=== PATIENT | female | born 1985 | race Caucasian/White ===

== ENCOUNTER 2017-11-07 08:20 | Inpatient (IN) | payer OTHER ==
[2017-11-08] MEDS ORDERED: OXYTOCIN 20 UNITS/1000 ML NS 1,000 ML IV SCH (06:00)
[2017-11-08] MEDS ORDERED: METHYLERGONOVINE 0.2 MG/ML 1 ML AMP IM PRN (06:00)
[2017-11-08] MEDS ORDERED: TERBUTALINE 1 MG/ML VIAL SQ PRN (06:00)
[2017-11-08] MEDS ORDERED: CARBOPROST TROMETHAMINE 250 MCG/ML 1 ML AMP IM PRN (06:00)
[2017-11-08] MEDS ORDERED: OXYTOCIN 10 UNIT/ML 1 ML VIAL IM PRN (06:00)
[2017-11-08] MEDS ORDERED: LIDOCAINE 1% (PF) 10 MG/ML (30 ML SDV) SQ PRN (06:00)
[2017-11-08 06:17] VITALS: BMI 47.7
[2017-11-08] MEDS: LACTATED RINGERS 1,000 ML IV SCH ×2 (06:26→10:20)
[2017-11-08 06:35] LABS: Basophils % (A) 0 %; Eosinophils # (A) 0.1 k/uL (0-0.7); Eosinophils % (A) 1 %; HCT 34.5 % (34.0-46.0); HGB 11.2 gm/dL (11.4-16.0); Lymphocytes # (A) 1.8 k/uL (1.0-4.8); Lymphocytes % (A) 19 %; MCH 27.3 pg (25.0-35.0); MCHC 32.3 g/dL (31.0-37.0); MCV 84.6 fL (80.0-100.0); Mean Platelet Volume 9.3; Monocytes # (A) 0.5 k/uL (0-1.0); Monocytes % (A) 5 %; Neutrophils # (A) 7.2 k/uL (1.3-7.7); Neutrophils % (A) 74 %; Platelet Count 221 k/uL (150-450); RBC 4.08 m/uL (3.80-5.40); RDW 14.3 % (11.5-15.5); WBC 9.8 k/uL (3.8-10.6)
--- NOTE | 2017-11-08 09:00 | P.HPOB ---
History of Present Illness H&P Date: 11/08/17 This is a 32-year-old white female 3 para 2002 EDC 11/07/2017 at 40 and one sevenths weeks' gestation. Patient presents this morning for induction with favorable multiparous cervix, slightly postdates . She is having mild irregular contractions spontaneously. She denies fluid leakage or vaginal bleeding. Fetus is been active throughout the . Obstetric history is significant for blood type A+, rubella status immune. VDRL testing, urine culture, hepatitis B surface antigen, HIV testing, group B strep cultures all negative. One-hour Glucola 130. Past medical history is significant for obesity. Past surgical history is negative. Current medications vitamins. ALLERGIES none known. Social history patient is a nonsmoker, she is , she denies alcohol or drug use. Family history is noncontributory. On exam this is a pleasant white female, 5 foot 8 inches, 314 pounds, blood pressure 133/82, pulse 84, patient is afebrile. The general physical exam is within normal limits. Patient has poor dentition noted. Chest is clear in all clement. Extremities reveal no edema. Cervix is 4 cm dilated, 70-80% effaced, - 2 station, vertex presentation. Artificial amniorrhexis reveals clear fluid. heart tones are in the 140s with frequent accelerations consistent with reactive NST. Impression: 40 and one sevenths weeks intrauterine , favorable multiparous cervix, early labor. Plan: Continue oxytocin augmentation per hospital protocol. Continue close maternal and surveillance. Epidural may be placed at patient's request. Anticipate normal spontaneous vaginal delivery. Review of Systems Constitutional: Reports as per HPI Past Medical History Past Medical History: No Reported History Additional Past Medical History / Comment(s): Obesity History of Any Multi-Drug Resistant Organisms: None Reported Past Surgical History: No Surgical Hx Reported Past Anesthesia/Blood Transfusion Reactions: No Reported Reaction Past Psychological History: No Psychological Hx Reported Smoking Status: Never smoker Past Drug Use History: None Reported - Past Family History Mother Family Medical History: Diabetes Mellitus Medications and Allergies Home Medications Medication Instructions Recorded Confirmed Type Fluticasone Nasal [place] [Flonase 2 spr EA NOSTRIL DAILY #1 bottle 05/11/1511/08 Rx Nasal [place]] Pnv No.95/Ferrous Fum/Folic AC 1 each PO ONCE 11/08/17 11/08/17 History [ Multivitamin Tablet] Allergies Allergy/AdvReac Type Severity Reaction Status Date / Time No Known Allergies Allergy Verified 11/08/17 05:59 Exam Vital Signs Temp Pulse Resp BP Pulse Ox 11/08/17 05:57 97.2 F L 84 16 133/82 98 Intake and Output 11/07/17 11/08/17 11/08/17 22:59 06:59 14:59 Other: # Voids 1 Weight 142.428 kg See dictation under HPI please Results Result Diagrams: 11/08/17 06:15 Abnormal Lab Results - Last 24 Hours (Table) 11/08/17 Range/Units 06:15 Hgb 11.2 L (11.4-16.0) gm/dL Assessment and Plan Assessment: 40 and one sevenths weeks intrauterine , early labor. Favorable multiparous cervix. Plan: Oxytocin augmentation per hospital protocol. Epidural may be a stat patient's request. Close maternal and surveillance. Anticipate normal spontaneous vaginal delivery. Time with Patient: Less than 30
[2017-11-08] MEDS ORDERED: ACETAMINOPHEN TAB 325 MG TAB PO PRN (12:19)
[2017-11-08] MEDS ORDERED: diphenhydrAMINE 25 MG CAP PO PRN (12:19)
[2017-11-08] MEDS ORDERED: IBUPROFEN 600 MG TAB PO PRN (12:19)
[2017-11-08] MEDS ORDERED: ZOLPIDEM 5 MG TAB PO PRN (12:19)
[2017-11-08] MEDS ORDERED: diphenhydrAMINE 50 MG CAP PO PRN (12:19)
[2017-11-08] MEDS ORDERED: SIMETHICONE 80 MG CHEWABLE PO PRN (12:19)
[2017-11-08] MEDS ORDERED: diphenhydrAMINE 50 MG/ML 1 ML VIAL IVP PRN ×2 (12:19)
[2017-11-08] MEDS ORDERED: LANOLIN CREAM 5 GM TUBE TOPICAL PRN (12:19)
[2017-11-08] MEDS ORDERED: BENZOCAINE/MENTHOL SPRAY 1 GM/SPRAY AEROSOL TOPICAL PRN (12:19)
[2017-11-08] MEDS ORDERED: WITCH HAZEL 1 EACH MED..PAD TOPICAL PRN (12:19)
[2017-11-08] MEDS ORDERED: HYDROcodone/APAP 5-325MG 1 EACH TAB PO PRN (12:19)
[2017-11-08] MEDS ORDERED: HYDROCORTISONE 2.5% RECTAL CREAM 30 GM TUBE RECTAL PRN (12:19)
--- NOTE | 2017-11-08 12:19 | P.PROBDLV ---
Vaginal Delivery Note - . Vaginal Delivery Note: This is a 32-year-old white female 3 para 2002 EDC 11/07/2017 at 40 and one sevenths weeks' gestation. Patient presented for induction with favorable multiparous cervix and history of macrosomia. Fetus is been active throughout the . On admission she was noted to be having mild irregular contractions. Strep cultures negative, rubella status immune, blood type A positive. Please see dictated history and physical for details. Artificial amniorrhexis revealed clear fluid. Oxytocin was started and titrated per hospital protocol. Patient progressed well through the first stage of labor was judged to be completely dilated at 12:00 noon. The perineal body was prepped and draped in usual sterile fashion. Infant's head delivered occiput anterior and he restituted accordingly. There was a nuchal cord 1 that was reduced on the perineal body. The left or anterior shoulder was gently delivered from underneath the pubic symphysis at which time the oropharynx, nasopharynx, and external nares were all bulb suctioned on the perineal body. Patient was officially delivered of a liveborn male at 1203 hrs. Umbilical cord was doubly clamped and ligated, he was handed to waiting nurses for evaluation where scores of 9 and 9 at one and 5 minutes respectively were given. weighed 9 lbs. 7 oz. or 4280 g. The placenta delivered spontaneously, it was inspected and noted to be intact with trivascular cord at 1206 hrs. At this time the perineal body was redraped. Inspection of the cervix, vagina, perineum, and periurethral areas revealed a small first-degree midline perineal laceration. This was repaired in the usual fashion with a single figure-of- eight suture of 3-0 Vicryl for excellent reapproximation. All sponge needle and enhancement counts are correct at the end of our procedure. Estimated blood loss 300 mL's. Patient is requesting circumcision for her son. Patient and her are allowed to begin the bonding experience in the LDR.
[2017-11-08 12:31] VITALS: RESP 16
[2017-11-08] MEDS ORDERED: ROPIVACAINE 100 MG, fentaNYL (PF) 200 MCG in SODIUM CHLORIDE 0.9% 76 ML EPIDURAL ONE (13:04)
[2017-11-08] MEDS: SENNOSIDES-DOCUSATE SODIUM 1 EACH TAB PO SCH (20:39)
--- NOTE | 2017-11-09 08:27 | P.DS ---
Providers Date of admission: 11/08/17 05:48 Expected date of discharge: 11/09/17 Attending physician: Rosette Travis Primary care physician: Stated None Hospital Course: This is a 32-year-old white female 3 para 2002 EDC 11/07/2017 at 40 and one sevenths weeks' gestation. Patient presented for induction for suspected macrosomia, favorable multiparous cervix at term. is essentially unremarkable, group B strep cultures negative, rubella status immune. Please see my dictated history and physical for details. Artificial amniorrhexis revealed clear fluid. Oxytocin was started and titrated per hospital protocol. Patient progressed well through the first stage of labor. She went on to deliver a liveborn male with scores of 9 and 9 at one and 5 minutes respectively. Infant weighed 4280 g 8 ounces. A small first-degree perineal laceration was encountered and repaired without issue. Estimate a blood loss 300 mL's. Please see my dictated delivery note for details. This morning the patient is doing well. She is voiding, and bleeding and passing flatus without difficulty. Vital signs are stable and she is afebrile. Fundus is firm and in the midline, symmetric and 18 week size. Extremities are negative for edema. Chest is clear in all clement. Ounces firm and in the midline, symmetric and 18 week size. Breasts are not engorged. infant has been circumcised and is doing well. Patient is being discharged home today in very good condition. She will follow- up with me in the office in 6 weeks. I have reminded her no intercourse, tampons or douching. She will use [id number] ibuprofen products as needed for pain, 200 mg pills, for every 8 hours as needed. I've asked her to call me with any fevers shakes or chills, foul smelling or copious lochia, with the passage of large blood clots, with any pain not alleviated by over-the- counter meds, or indeed with any concerns. Patient Condition at Discharge: Good Plan - Discharge Summary New Discharge Prescriptions: No Action Fluticasone Nasal [place] [Flonase Nasal [place]] 2 spr EA NOSTRIL DAILY #1 bottle Pnv No.95/Ferrous Fum/Folic AC [ Multivitamin Tablet] 1 each PO ONCE Discharge Medication List Fluticasone Nasal [place] [Flonase Nasal [place]] 2 spr EA NOSTRIL DAILY #1 bottle 05/11/15 [Rx] Pnv No.95/Ferrous Fum/Folic AC [ Multivitamin Tablet] 1 each PO ONCE [History] Follow up Appointment(s)/Referral(s): Rosette Travis MD [STAFF PHYSICIAN] - 6 Weeks Discharge Disposition: HOME SELF-CARE
[2017-11-09 10:53] VITALS: BP 125/65; PULSE 81; TEMP 98.4
[2017-11-09] MEDS: SENNOSIDES-DOCUSATE SODIUM 1 EACH TAB PO SCH (10:54)
== END 2017-11-09 14:40 | disposition home or self-care (01) | DRG 775 ==
LOC: 4FBP 11-08 05:48
PROVIDERS: ADMIT Obstetrics & Gynecology; ATTEND Obstetrics & Gynecology
PROC: 10E0XZZ Delivery of Products of Conception, External Approach (ICD-10-PCS; principal; 2017-11-08)
PROC: 0HQ9XZZ Repair Perineum Skin, External Approach (ICD-10-PCS; 2017-11-08)
PROC: 10907ZC Drainage of Amniotic Fluid, Therapeutic from Products of Conception, Via Natural or Artificial Opening (ICD-10-PCS; 2017-11-08)
PROC: 3E033VJ Introduction of Other Hormone into Peripheral Vein, Percutaneous Approach (ICD-10-PCS; 2017-11-08)
PROC: 00HU33Z Insertion of Infusion Device into Spinal Canal, Percutaneous Approach (ICD-10-PCS; 2017-11-08)
PROC: 3E0R3BZ Introduction of Anesthetic Agent into Spinal Canal, Percutaneous Approach (ICD-10-PCS; 2017-11-08)
DX: O48.0 Post-term pregnancy (principal); Z68.42 Body mass index [BMI] 45.0-49.9, adult; Z37.0 Single live birth; O99.214 Obesity complicating childbirth; O69.81X0 Labor and delivery complicated by cord around neck, without compression, not applicable or unspecified; O70.0 First degree perineal laceration during delivery; Z3A.40 40 weeks gestation of pregnancy; Z79.899 Other long term (current) drug therapy; Z83.3 Family history of diabetes mellitus
CPT/HCPCS: 85025

== ENCOUNTER 2020-01-15 06:07 | Inpatient (IN) | payer OTHER ==
[2020-01-15] MEDS ORDERED: CARBOPROST TROMETHAMINE 250 MCG/ML 1 ML AMP IM PRN (06:16)
[2020-01-15] MEDS ORDERED: METHYLERGONOVINE 0.2 MG/ML 1 ML AMP IM PRN (06:16)
[2020-01-15] MEDS ORDERED: OXYTOCIN 10 UNIT/ML 1 ML VIAL IM PRN (06:16)
[2020-01-15] MEDS ORDERED: TERBUTALINE 1 MG/ML VIAL SQ PRN (06:16)
[2020-01-15] MEDS ORDERED: LIDOCAINE 0.5% (PF) 5 MG/ML (50 ML SDV) SQ PRN (06:16)
[2020-01-15 06:27] VITALS: RESP 16
[2020-01-15] MEDS ORDERED: OXYTOCIN 30 UNITS/500 ML NS 30 UNIT in SALINE 1 500ML.BAG IV SCH (06:30)
[2020-01-15] MEDS: LACTATED RINGERS 1,000 ML IV SCH ×2 (06:34→08:56)
[2020-01-15 06:45] LABS: Basophils # (A) 0.1 k/uL (0-0.2); Basophils % (A) 1 %; Eosinophils # (A) 0.1 k/uL (0-0.7); Eosinophils % (A) 1 %; HCT 36.2 % (34.0-46.0); HGB 11.7 gm/dL (11.4-16.0); Lymphocytes # (A) 1.9 k/uL (1.0-4.8); Lymphocytes % (A) 23 %; MCH 27.7 pg (25.0-35.0); MCHC 32.4 g/dL (31.0-37.0); MCV 85.3 fL (80.0-100.0); Monocytes # (A) 0.4 k/uL (0-1.0); Monocytes % (A) 4 %; Neutrophils # (A) 5.9 k/uL (1.3-7.7); Neutrophils % (A) 70 %; Platelet Count 196 k/uL (150-450); RBC 4.25 m/uL (3.80-5.40); RDW 14.5 % (11.5-15.5); WBC 8.5 k/uL (3.8-10.6)
--- NOTE | 2020-01-15 07:56 | P.HPOB ---
History of Present Illness H&P Date: 01/15/20 This is a 34-year-old female 4 para 3003 EDC 01/22/2020 at 39 weeks gestation. Patient presents today for induction with favorable multiparous cervix at term. Fetus is been active throughout the . She is having mild uterine contractions spontaneously every 5 minutes apart. She denies fluid leakage or vaginal bleeding. Past medical history is significant for morbid obesity. Past surgical history colposcopy of the cervix. Current medications vitamins daily. ALLERGIES none known. Family history significant for gout, hypertension, insulin-dependent diabetes. Reproductive history vaginal deliveries 3, 9010 pound fetuses. Social history patient is single, father of the baby is present and involved. She has never been a tobacco smoker. She denies alcohol or drug use. She is employed locally. history is significant for blood type A positive, rubella status nonimmune. VDRL testing, urine culture, hepatitis B surface antigen, HIV testing, gonorrhea and chlamydia cultures all negative. One-hour Glucola elevated, 3 hour GTT within normal limits. Group B strep cultures negative. On exam patient is 5 foot 8 inches, 325 pounds, blood pressure on admission 142/79, vital signs otherwise stable. The general physical exam is within normal limits. The uterus reveals a fundal height of approximately 43 cm. Extremities reveal no edema. Cervix is 4-5 cm dilated, 60-70% effaced, -2 station, vertex presentation. Artificial amniorrhexis reveals clear fluid. Internal scalp lead is applied per nursing request secondary to large abdominal pannus and inability to consistently monitor heart rate. heart rate is consistent with reactive NST with overall excellent variability. Impression: 39 week intrauterine , here for induction of labor, all signs reassuring. Morbid maternal obesity noted area sonographic evidence of macrosomia also considered. Plan: Continue close maternal and surveillance. Analgesic options have been reviewed with the patient. Anticipate normal spontaneous vaginal delivery. Review of Systems Constitutional: Reports as per HPI Past Medical History Past Medical History: No Reported History Additional Past Medical History / Comment(s): Obesity History of Any Multi-Drug Resistant Organisms: None Reported Past Surgical History: No Surgical Hx Reported Past Anesthesia/Blood Transfusion Reactions: No Reported Reaction Past Psychological History: No Psychological Hx Reported Smoking Status: Never smoker Past Alcohol Use History: None Reported Past Drug Use History: None Reported - Past Family History Mother Family Medical History: Diabetes Mellitus Medications and Allergies Home Medications Medication Instructions Recorded Confirmed Type Pnv No.95/Ferrous Fum/Folic AC 1 each PO ONCE 11/08/17 01/15/20 History [ Multivitamin Tablet] Allergies Allergy/AdvReac Type Severity Reaction Status Date / Time No Known Allergies Allergy Verified 01/15/20 06:16 Exam Vital Signs Temp Pulse Resp BP Pulse Ox 01/15/20 06:20 97.0 F L 98 16 142/79 97 Intake and Output 01/14/20 01/15/20 01/15/20 22:59 06:59 14:59 Other: Weight 147.418 kg See dictation under HPI please Results Result Diagrams: 01/15/20 06:35 Assessment and Plan Assessment: 39 week intrauterine , favorable multiparous cervix, macrosomia anticipated, maternal morbid obesity noted. Plan: Oxytocin per hospital protocol. Close maternal and surveillance. Anticipate normal spontaneous vaginal delivery.
[2020-01-15] MEDS ORDERED: diphenhydrAMINE ELIXIR 25 MG/10 ML CUP PO PRN (11:23)
[2020-01-15] MEDS ORDERED: HYDROCORTISONE 2.5% RECTAL CREAM 30 GM TUBE RECTAL PRN (11:23)
[2020-01-15] MEDS ORDERED: ACETAMINOPHEN TAB 325 MG TAB PO PRN (11:23)
[2020-01-15] MEDS ORDERED: SIMETHICONE 80 MG CHEWABLE PO PRN (11:23)
[2020-01-15] MEDS ORDERED: diphenhydrAMINE 50 MG/ML 1 ML VIAL IVP PRN ×2 (11:23)
[2020-01-15] MEDS ORDERED: ZOLPIDEM 5 MG TAB PO PRN (11:23)
[2020-01-15] MEDS ORDERED: diphenhydrAMINE 50 MG CAP PO PRN (11:23)
[2020-01-15] MEDS ORDERED: IBUPROFEN 600 MG TAB PO PRN (11:23)
[2020-01-15] MEDS ORDERED: LANOLIN CREAM 5 GM TUBE TOPICAL PRN (11:23)
[2020-01-15] MEDS ORDERED: diphenhydrAMINE 25 MG CAP PO PRN (11:23)
[2020-01-15] MEDS ORDERED: BENZOCAINE/MENTHOL SPRAY 1 GM/SPRAY AEROSOL TOPICAL PRN (11:23)
--- NOTE | 2020-01-15 11:23 | P.PROBDLV ---
Vaginal Delivery Note - . Vaginal Delivery Note: This is a 34-year-old 4 para 3003 EDC 01/22/2020 at 39 weeks gestation. Patient presented today for induction for suspected macrosomia, favorable multiparous cervix. Group B strep cultures negative. Blood type B positive. Rubella nonimmune. Please see admitting history and physical for details. Artificial amniorrhexis revealed light meconium-stained fluid. Internal scalp lead was applied. Epidural was placed per patient's request after active labor commenced. Oxytocin was started and titrated per hospital protocol. heart rate was reassuring throughout the first and second stages of labor. Patient became completely dilated, perineal body was prepped and draped in the usual sterile fashion. With excellent maternal expulsive efforts the head delivered occiput anterior and restituted accordingly. There was a nuchal cord 1 that was reduced. The right or anterior shoulder was gently delivered from underneath the pubic symphysis at which time the oropharynx, nasopharynx, and external nares were all bulb suctioned. Patient was officially delivered of a liveborn female at 03/21/2002 hours. Umbilical cord was doubly clamped and ligated, she was handed to waiting nurses for evaluation where scores of 8 and 9 at one and 5 minutes respectively were given. Placenta delivered spontaneously, it was inspected and noted to be intact with trivascular cord at 03/21/2007 hours. At this time the perineal body was redraped. Inspection of the cervix, vagina, perineum, periurethral, and perirectal areas revealed a small first-degree midline laceration, easily repaired with 3-0 repeat suture. Fundus is firm and in the midline, symmetric and 18 week size upon completion of delivery. Total estimated blood loss 250 mL's. weighed 4735 g or 10 lbs. 7 oz. Patient is allowed to begin the bonding experience in the LDR with her .
[2020-01-15] MEDS ORDERED: OXYTOCIN 20 UNITS/1000 ML NS 1,000 ML IV SCH (11:30)
[2020-01-15] MEDS ORDERED: ROPIVACAINE 100 MG, fentaNYL (PF) 200 MCG in SODIUM CHLORIDE 0.9% 76 ML EPIDURAL ONE (13:36)
[2020-01-15] MEDS ORDERED: SENNOSIDES-DOCUSATE SODIUM 1 EACH TAB PO SCH (20:00)
--- NOTE | 2020-01-16 07:31 | P.DS ---
Providers Date of admission: 01/15/20 06:07 Expected date of discharge: 01/16/20 Attending physician: Rosette Travis Primary care physician: Stated None Hospital Course: This is a 34-year-old white female 4 para 3003 EDC 01/22/2020 at 39 weeks gestation. Patient presented for induction for suspected macrosomia. otherwise unremarkable, group B strep cultures negative, [place] status nonimmune, blood type A+. Morbid maternal obesity is noted. Please see dictated history and physical for details. Patient was admitted, artificial amniorrhexis revealed thin meconium-stained fluid. Oxytocin was started and titrated. Epidural was placed per her request. She went on to deliver swiftly a liveborn female infant with scores of 8 and 9 at one and 5 minutes respectively. weighed 4735 g or 10 lbs. 7 oz. Estimated blood loss at delivery 250 mL's. There was a nuchal cord 1 that was reduced. Please see dictated delivery note for details. This morning the patient is doing well. She is voiding, ambulate in, passing flatus without difficulty. Vital signs are stable and she is afebrile. The general exam is within normal limits lochia rubra is scant. Patient is judged to be in very good condition for discharge home. Patient will follow-up with me in the office in 6 weeks. I have reminded her no intercourse, tampons or douching. She will use [id number] Advil or Aleve as needed for pain. I reminded her to call with any fevers shakes or chills, foul smelling or copious lochia, with the passage of large blood clots, with any pain not alleviated I [id number] products, or indeed with any questions or concerns. Assessment: Doing well day #1 Patient Condition at Discharge: Good Plan - Discharge Summary Discharge Rx Participant: No New Discharge Prescriptions: No Action Pnv No.95/Ferrous Fum/Folic AC [ Multivitamin Tablet] 1 each PO ONCE Discharge Medication List Pnv No.95/Ferrous Fum/Folic AC [ Multivitamin Tablet] 1 each PO ONCE 11/08/17 [History] Follow up Appointment(s)/Referral(s): Rosette Travis MD [STAFF PHYSICIAN] - 6 Weeks Discharge Disposition: HOME SELF-CARE
[2020-01-16 08:31] VITALS: BP 115/70; PULSE 72; TEMP 98.3
== END 2020-01-16 12:25 | disposition home or self-care (01) | DRG 807 ==
LOC: 4FBP 06:07
PROVIDERS: ADMIT Obstetrics & Gynecology; ATTEND Obstetrics & Gynecology
PROC: 10E0XZZ Delivery of Products of Conception, External Approach (ICD-10-PCS; principal; 2020-01-15)
PROC: 0HQ9XZZ Repair Perineum Skin, External Approach (ICD-10-PCS; 2020-01-15)
PROC: 3E033VJ Introduction of Other Hormone into Peripheral Vein, Percutaneous Approach (ICD-10-PCS; 2020-01-15)
PROC: 10907ZC Drainage of Amniotic Fluid, Therapeutic from Products of Conception, Via Natural or Artificial Opening (ICD-10-PCS; 2020-01-15)
PROC: 3E0R3BZ Introduction of Anesthetic Agent into Spinal Canal, Percutaneous Approach (ICD-10-PCS; 2020-01-15)
DX: O36.63X0 Maternal care for excessive fetal growth, third trimester, not applicable or unspecified (principal); Z37.0 Single live birth; E66.01 Morbid (severe) obesity due to excess calories; O99.214 Obesity complicating childbirth; O77.0 Labor and delivery complicated by meconium in amniotic fluid; O69.81X0 Labor and delivery complicated by cord around neck, without compression, not applicable or unspecified; O70.0 First degree perineal laceration during delivery; Z3A.39 39 weeks gestation of pregnancy; Z79.899 Other long term (current) drug therapy; Z82.49 Family history of ischemic heart disease and other diseases of the circulatory system; Z82.69 Family history of other diseases of the musculoskeletal system and connective tissue; Z83.3 Family history of diabetes mellitus
CPT/HCPCS: 85025; 86850; 86900; 86901

== ENCOUNTER 2020-10-28 15:30 | Observation (INO) | payer OTHER ==
--- NOTE | 2020-10-28 16:34 | XR ---
EXAMINATION TYPE: XR chest 2V DATE OF EXAM: 10/28/2020 COMPARISON: None INDICATION: Chest pain TECHNIQUE: Frontal and lateral views of the chest are obtained. FINDINGS: The heart size is normal. The pulmonary vasculature is normal. The lungs are clear. IMPRESSION: 1. No acute pulmonary process.
--- NOTE | 2020-10-28 17:57 | ED ---
General Adult HPI - General Chief complaint: Chest Pain Stated complaint: Chest Pain Time Seen by Provider: 10/28/20 17:05 Source: patient Mode of arrival: ambulatory Limitations: no limitations - History of Present Illness Initial comments: Patient is a 35-year-old female with a past history of morbid obesity who presents to the emergency from for a chief complaint of chest pain 3 days. Patient states that she has had chest pressure and burning in her chest for the past 3 days on and off. States at night she is fine and going to sleep she is fine however throughout the day she will have a pressure that comes and goes. Lasts about 5 minutes at a time. Patient denies alleviating or aggravating factors. Denies pain worsening with exertion. Denies shortness of breath. Denies any radiating pain to the arms back and neck or jaw. Patient denies diaphoresis or shortness of breath. She does image some mild nausea. Patient saw her doctor who started her on omeprazole. She started this today.patient denies any history of hyperlipidemia, hypertension, diabetes, or smoking. Denies any family history of GA or stroke before age 65 and her parents. Patient has no other complaints at this time including shortness of breath, abdominal pain, nausea or vomiting, headache, or visual changes. - Related Data Home Medications Medication Instructions Recorded Confirmed Famotidine 20 mg PO BID 10/28/20 10/28/20 Allergies Allergy/AdvReac Type Severity Reaction Status Date / Time No Known Allergies Allergy Verified 10/28/20 18:10 Review of Systems ROS Statement: Those systems with pertinent positive or pertinent negative responses have been documented in the HPI. ROS Other: All systems not noted in ROS Statement are negative. Past Medical History Past Medical History: No Reported History Additional Past Medical History / Comment(s): Obesity History of Any Multi-Drug Resistant Organisms: None Reported Past Surgical History: No Surgical Hx Reported Past Anesthesia/Blood Transfusion Reactions: No Reported Reaction Past Psychological History: No Psychological Hx Reported Smoking Status: Never smoker Past Alcohol Use History: None Reported Past Drug Use History: None Reported - Past Family History Mother Family Medical History: Diabetes Mellitus General Exam Limitations: no limitations General appearance: alert, in no apparent distress Head exam: Present: atraumatic, normocephalic, normal inspection Eye exam: Present: normal appearance, PERRL, EOMI. Absent: scleral icterus, conjunctival injection, periorbital swelling ENT exam: Present: normal exam, mucous membranes moist Neck exam: Present: normal inspection, full ROM. Absent: tenderness, meningismus, lymphadenopathy Respiratory exam: Present: normal lung sounds bilaterally. Absent: respiratory distress, wheezes, rales, rhonchi, stridor Cardiovascular Exam: Present: regular rate, normal rhythm, normal heart sounds. Absent: systolic murmur, diastolic murmur, rubs, gallop, clicks GI/Abdominal exam: Present: soft, normal bowel sounds. Absent: distended, tenderness, guarding, rebound, rigid Extremities exam: Present: normal capillary refill (Radial pulses 2+ bi laterally) Neurological exam: Present: alert Course Vital Signs 10/28/20 10/28/20 15:43 18:46 Temperature 98.2 F Pulse Rate 88 84 Respiratory 20 18 Rate Blood Pressure 149/87 134/91 O2 Sat by Pulse 98 98 Oximetry - Reevaluation(s) Reevaluation #1: 10/28/20 18:58 Patient's labs are received however another set of labs the patient's stickers were also received. Therefore we had to redo the labs. EKG Findings - EKG Comments: EKG Findings:: Normal sinus rhythm, ventricular rate 90, SC 152, QTc 469 Medical Decision Making - Medical Decision Making Vitals are stable. Patient is well-appearing. EKG does show some flipped T waves in V2 and possibly V3. CBC CMP unremarkable. Of note patient's first labs obtained were potentially not her blood so labs were reordered. Troponin was negative. Chest x-ray shows no acute process. Given symptoms of pressure as well as her history of obesity without any history of cardiac workup she will be admitted at least for serial troponin. - Lab Data Result diagrams: 10/28/20 18:20 10/28/20 18:20 Lab Results 10/28/20 10/28/20 10/28/20 Range/Units 16:13 16:13 16:13 WBC (3.8-10.6) k/uL RBC (3.80-5.40) m/uL Hgb (11.4-16.0) gm/dL Hct (34.0-46.0) % MCV (80.0-100.0) fL MCH (25.0-35.0) pg MCHC (31.0-37.0) g/dL RDW (11.5-15.5) % Plt Count (150-450) k/uL MPV CEMENT[employer] HELPER Neutrophils % C[employer] HELPER Lymphocytes % [employer] Monocytes % % Eosinophils % % Basophils % % Neutrophils # (1.3-7.7) k/uL Lymphocytes # (1.0-4.8) k/uL Monocytes # (0-1.0) k/uL Eosinophils # (0-0.7) k/uL Basophils # (0-0.2) k/uL PT (9.0-12.0) sec INR (<1.2) APTT (22.0-30.0) sec Sodium (137-145) mmol/L Potassium 4.1 (3.5-5.1) mmol/L Chloride 108 H (98-107) mmol/L Carbon Dioxide 23 (22-30) mmol/L Anion Gap 10 mmol/L BUN 12 (7-17) mg/dL Creatinine 0.79 (0.52-1.04) mg/dL Est GFR (CKD-EPI)AfAm >90 (>60 ml/min/1.73 sqM) Est GFR (CKD-EPI)NonAf >90 (>60 ml/min/1.73 sqM) Glucose (74-99) mg/dL Calcium 9.2 (8.4-10.2) mg/dL Magnesium 2.3 (1.6-2.3) mg/dL Total Bilirubin 0.5 (0.2-1.3) mg/dL AST 25 (14-36) U/L ALT 19 (4-34) U/L Alkaline Phosphatase 126 (38-126) U/L Troponin I (0.000-0.034) ng/mL Total Protein 7.3 (6.3-8.2) g/dL Albumin 4.3 (3.5-5.0) g/dL 10/28/20 10/28/20 10/28/20 Range/Units 16:13 18:20 18:20 WBC 10.6 (3.8-10.6) k/uL RBC 4.45 (3.80-5.40) m/uL Hgb 13.2 (11.4-16.0) gm/dL Hct 39.1 (34.0-46.0) % MCV 87.9 (80.0-100.0) fL MCH 29.7 (25.0-35.0) pg MCHC 33.8 (31.0-37.0) g/dL RDW 13.3 (11.5-15.5) % Plt Count 258 (150-450) k/uL MPV 9.2 Neutrophils % 78 Lymphocytes % 16 Monocytes % 4 % Eosinophils % 1 % Basophils % 0 % Neutrophils # 8.2 H (1.3-7.7) k/uL Lymphocytes # 1.7 (1.0-4.8) k/uL Monocytes # 0.4 (0-1.0) k/uL Eosinophils # 0.1 (0-0.7) k/uL Basophils # 0.0 (0-0.2) k/uL PT 10.2 (9.0-12.0) sec INR 0.9 (<1.2) APTT 21.8 L (22.0-30.0) sec Sodium (137-145) mmol/L Potassium (3.5-5.1) mmol/L Chloride (98-107) mmol/L Carbon Dioxide (22-30) mmol/L Anion Gap mmol/L BUN (7-17) mg/dL Creatinine (0.52-1.04) mg/dL Est GFR (CKD-EPI)AfAm (>60 ml/min/1.73 sqM) Est GFR (CKD-EPI)NonAf (>60 ml/min/1.73 sqM) Glucose (74-99) mg/dL Calcium (8.4-10.2) mg/dL Magnesium (1.6-2.3) mg/dL Total Bilirubin (0.2-1.3) mg/dL AST (14-36) U/L ALT (4-34) U/L Alkaline Phosphatase (38-126) U/L Troponin I (0.000-0.034) ng/mL Total Protein (6.3-8.2) g/dL Albumin (3.5-5.0) g/dL 10/28/20 10/28/20 Range/Units 18:20 18:20 WBC (3.8-10.6) k/uL RBC (3.80-5.40) m/uL Hgb (11.4-16.0) gm/dL Hct (34.0-46.0) % MCV (80.0-100.0) fL MCH (25.0-35.0) pg MCHC (31.0-37.0) g/dL RDW (11.5-15.5) % Plt Count (150-450) k/uL MPV Neutrophils % Lymphocytes % Monocytes % % Eosinophils % % Basophils % % Neutrophils # (1.3-7.7) k/uL Lymphocytes # (1.0-4.8) k/uL Monocytes # (0-1.0) k/uL Eosinophils # (0-0.7) k/uL Basophils # (0-0.2) k/uL PT (9.0-12.0) sec INR (<1.2) APTT (22.0-30.0) sec Sodium 140 (137-145) mmol/L Potassium 4.2 (3.5-5.1) mmol/L Chloride 108 H (98-107) mmol/L Carbon Dioxide 23 (22-30) mmol/L Anion Gap 9 mmol/L BUN 12 (7-17) mg/dL Creatinine 0.78 (0.52-1.04) mg/dL Est GFR (CKD-EPI)AfAm >90 (>60 ml/min/1.73 sqM) Est GFR (CKD-EPI)NonAf >90 (>60 ml/min/1.73 sqM) Glucose 95 (74-99) mg/dL Calcium 9.2 (8.4-10.2) mg/dL Magnesium 2.3 (1.6-2.3) mg/dL Total Bilirubin 0.5 (0.2-1.3) mg/dL AST 24 (14-36) U/L ALT 19 (4-34) U/L Alkaline Phosphatase 128 H (38-126) U/L Troponin I <0.012 (0.000-0.034) ng/mL Total Protein 7.3 (6.3-8.2) g/dL Albumin 4.3 (3.5-5.0) g/dL Disposition Clinical Impression: Chest pressure, Obesity Disposition: ADMITTED IP TO THIS HOSP Is patient prescribed a controlled substance at d/c from ED?: No Referrals: Ivy Muñoz MD [Primary Care Provider] - 1-2 days
[2020-10-28 18:22] LABS: Basophils % (A) 0 %; Eosinophils # (A) 0.1 k/uL (0-0.7); Eosinophils % (A) 1 %; HCT 39.1 % (34.0-46.0); HGB 13.2 gm/dL (11.4-16.0); Lymphocytes # (A) 1.7 k/uL (1.0-4.8); Lymphocytes % (A) 16 %; MCH 29.7 pg (25.0-35.0); MCHC 33.8 g/dL (31.0-37.0); MCV 87.9 fL (80.0-100.0); Mean Platelet Volume 9.2; Monocytes # (A) 0.4 k/uL (0-1.0); Monocytes % (A) 4 %; Neutrophils # (A) 8.2 k/uL (1.3-7.7); Neutrophils % (A) 78 %; Platelet Count 258 k/uL (150-450); RBC 4.45 m/uL (3.80-5.40); RDW 13.3 % (11.5-15.5); WBC 10.6 k/uL (3.8-10.6)
[2020-10-28 18:33] LABS: ALT 19 U/L (4-34); AST 24 U/L (14-36); African American GFR (CKD) >90 (>60 ml/min/1.73 sqM); Albumin 4.3 g/dL (3.5-5.0); Alkaline Phosphatase 128 U/L (38-126); Anion Gap 9 mmol/L; Blood Urea Nitrogen 12 mg/dL (7-17); Calcium 9.2 mg/dL (8.4-10.2); Carbon Dioxide 23 mmol/L (22-30); Chloride 108 mmol/L (98-107); Glucose 95 mg/dL (74-99); Magnesium 2.3 mg/dL (1.6-2.3); Non-African American GFR(CKD) >90 (>60 ml/min/1.73 sqM); Potassium 4.2 mmol/L (3.5-5.1); Sodium 140 mmol/L (137-145); Total Bilirubin 0.5 mg/dL (0.2-1.3); Total Protein 7.3 g/dL (6.3-8.2)
[2020-10-28 18:41] LABS: INR 0.9 (<1.2); Partial Thromboplastin Time 21.8 sec (22.0-30.0); Prothrombin Time 10.2 sec (9.0-12.0)
[2020-10-28] MEDS ORDERED: ASPIRIN 81 MG PO STA (19:20)
[2020-10-29 01:49] VITALS: TEMP 98.5
--- NOTE | 2020-10-29 08:03 | P.CRDCN ---
History of Present Illness History of present illness: HISTORY OF PRESENTING ILLNESS This is a pleasant 35year-old female past medical history significant for obesity, acid reflux. 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 We have been asked to see in consultation for chest pain. Patient is seen and examined at bedside, no acute distress. She states she has been having right sided chest pressure and burning for 3 days. Pain is intermittent. Non radiating. Non exertional. No aggravating factors. She did have some relief after drinking carbonated drink yesterday and burped. She has associated nausea. She denies associated diaphoresis, palpitations, shortness of breath. She denies lightheadedness or syncope, denies symptoms of orthopnea or PND. Denies history of NV, stroke, diabetes, hypertension, or dyslipidemia. She denies family histor y of heart disease. Grandfather did have some kind of heart disease at old age. She denies tobacco use, alcohol use or illicit drug use. She recently saw her primary and was started on pepcid, she did not tolerate this medication well. She was switched to another medication, possibly omeprazole. DIAGNOSTICS EKG reveals sinus rhythm HR 90, no significant ST-T wave abnormalities. Telemetry tracings indicate sinus mechanism HR 60-80s, occasionally high 40s overnight while sleeping Chest xray no acute cardiopulmonary process Laboratory reviewed, troponin negative x 3, WBC 10.6, Hgb 13.2, Plt 258, Sodium 140, K 4.2, BUN 12, serum creatinine 0.78, Mag 2.3. REVIEW OF SYSTEMS At the time of my exam: CONSTITUTIONAL: Denies fever or chills. CARDIOVASCULAR: +chest pain, Denies shortness of breath, orthopnea, PND or palpitations. RESPIRATORY: Denies cough. GASTROINTESTINAL: +nausea Denies abdominal pain, diarrhea, constipation, vomiting. MUSCULOSKELETAL: Denies myalgias. NEUROLOGIC: Denies numbness, tingling, headacbe or weakness. ENDOCRINE: Denies fatigue, weight change, polydipsia or polyurina. GENITOURINARY: Denies burning, hematuria or urgency with micturation. HEMATOLOGIC: Denies history of anemia or bleeding. PHYSICAL EXAMINATION BP 120/75 HR 78, afebrile maintaining oxygen saturations on room air. CONSTITUTIONAL: No apparent distress. HEENT: Head is normocephalic. Pupils are equal, round. Sclerae anicteric. Mucous membranes of the mouth are moist. No JVD. No carotid bruit. CHEST EXAMINATION: Lungs are clear to auscultation. No chest wall tenderness is noted on palpation or with deep breathing. HEART EXAMINATION: Regular rate and rhythm. S1, S2 heard. No murmurs, gallops or rub. ABDOMEN: Soft, nontender. Positive bowel sounds. EXTREMITIES: 2+ peripheral pulses, no lower extremity edema and no calf tenderness. SKIN: chest is mildly red, bilateral cheeks red, patient states she has had this for some time, not new NEUROLOGIC EXAMINATION: Patient is awake, alert and oriented x3. ASSESSMENT Chest pain, atypical acute coronary syndrome has been ruled out, patient's symptoms appear more GI related. History of acid reflux Obesity PLAN Will order GI cocktail An acute coronary event has been ruled out with no EKG evidence of ischemia and negative cardiac enzymes. Obtain 2D echocardiogram and doppler study to assess cardiac structure and function. Perform stress echo test to assess for stress induced cardiac ischemia. If echocardiogram with no acute findings and stress test is normal. Ok to discharge from a cardiology perspective. Thank you kindly for this consultation. Nurse Practitioner note has been reviewed, I agree with a documented findings and plan of care. Patient was seen and examined. Past Medical History Past Medical History: No Reported History Additional Past Medical History / Comment(s): Obesity History of Any Multi-Drug Resistant Organisms: None Reported Past Surgical History: No Surgical Hx Reported Past Anesthesia/Blood Transfusion Reactions: No Reported Reaction Past Psychological History: No Psychological Hx Reported Smoking Status: Never smoker Past Alcohol Use History: None Reported Past Drug Use History: None Reported - Past Family History Mother Family Medical History: Diabetes Mellitus Medications and Allergies Home Medications Medication Instructions Recorded Confirmed Type Famotidine 20 mg PO BID 10/28/20 10/28/20 History Allergies Allergy/AdvReac Type Severity Reaction Status Date / Time No Known Allergies Allergy Verified 10/28/20 18:10 Physical Exam Vitals: Vital Signs Temp Pulse Pulse Resp BP BP Pulse Ox 10/29/20 01:47 87 10/29/20 00:59 98.5 F 78 18 120/75 98 10/28/20 20:45 98.4 F 87 18 117/79 96 10/28/20 20:01 98.9 F 86 18 149/79 99 10/28/20 20:00 87 18 10/28/20 18:46 84 18 134/91 98 10/28/20 15:43 98.2 F 88 20 149/87 98 Intake and Output 10/28/20 10/29/20 10/29/20 22:59 06:59 14:59 Intake Total 350 Balance 350 Intake: Oral 350 Other: Voiding Method Toilet # Voids 1 3 Weight 148.325 kg Results 10/28/20 18:20 10/28/20 18:20 Cardiac Enzymes 10/28/20 10/28/20 10/28/20 Range/Units 16:13 16:13 18:20 AST 24 (14-36) U/L Troponin I (0.000-0.034) ng/mL 10/28/20 10/28/20 10/29/20 Range/Units 18:20 21:30 00:21 AST (14-36) U/L Troponin I <0.012 <0.012 <0.012 (0.000-0.034) ng/mL Coagulation 10/28/20 10/28/20 Range/Units 16:13 18:20 PT 10.2 (9.0-12.0) sec APTT 21.8 L (22.0-30.0) sec CBC 10/28/20 10/28/20 Range/Units 16:13 18:20 WBC 10.6 (3.8-10.6) k/uL RBC 4.45 (3.80-5.40) m/uL Hgb 13.2 (11.4-16.0) gm/dL Hct 39.1 (34.0-46.0) % Plt Count 258 (150-450) k/uL Comprehensive Metabolic Panel 10/28/20 10/28/20 Range/Units 16:13 18:20 Sodium 140 (137-145) mmol/L Potassium 4.2 (3.5-5.1) mmol/L Chloride 108 H (98-107) mmol/L Carbon Dioxide 23 (22-30) mmol/L BUN 12 (7-17) mg/dL Creatinine 0.78 (0.52-1.04) mg/dL Glucose 95 (74-99) mg/dL Calcium 9.2 (8.4-10.2) mg/dL AST 24 (14-36) U/L ALT 19 (4-34) U/L Alkaline Phosphatase 128 H (38-126) U/L Total Protein 7.3 (6.3-8.2) g/dL Albumin 4.3 (3.5-5.0) g/dL Current Medications Generic Name Dose Route Start Last Admin Trade Name Freq PRN Reason Stop Dose Admin Aspirin 325 mg 10/29/20 09:00 Aspirin 325 Mg Tab PO DAILY DOLORES Famotidine 20 mg 10/29/20 09:00 Famotidine 20 Mg Tab PO BID DOLORES Intake and Output 10/28/20 10/29/20 10/29/20 22:59 06:59 14:59 Intake Total 350 Balance 350 Intake: Oral 350 Other: Voiding Method Toilet # Voids 1 3 Weight 148.325 kg 10/28/20 18:20 10/28/20 18:20
[2020-10-29 08:04] VITALS: BP 137/92; PULSE 89; RESP 16
[2020-10-29] MEDS ORDERED: MAG HYDROX/AL HYDROX/SIMETH 30 ML, HYOSCYAMINE ELIXIR 10 ML, LIDOCAINE VISCOUS 2% 10 ML PO ONE ×3 (08:15)
[2020-10-29] MEDS ORDERED: ASPIRIN 325 MG TAB PO SCH (09:00)
[2020-10-29] MEDS ORDERED: FAMOTIDINE 20 MG TAB PO SCH (09:00)
[2020-10-29 10:47] LABS: Chol/HDL Ratio 4.06; Cholesterol 146 mg/dL (0-200); Triglycerides <50.0 mg/dL (0.0-149.0)
--- NOTE | 2020-10-29 11:53 | P.HPIM ---
History of Present Illness H&P Date: 10/29/20 Chief Complaint: Chest pain This is a 35-year-old female patient of Dr. ferrell. Patient presented to the ER with complaints of chest pressure that has been occurring over the past 3 days intermittently patient describes pain as right-sided pressure and burning. Patient denies radiation to neck jaw or arm. Patient denies any associated shortness of breath. Patient reports that she has been following with her PCP who started her on Pepcid but she was unable to tolerate that medication. Patient denies any nicotine use or alcohol use. patient does have a past medica l history of obesity. Chest x-ray completed showing no acute pulmonary process. Troponins negative 3. Cardiology consult has been placed 2-D echo and stress test has been ordered. At this time patient denies chest pain or shortness of breath. Patient denies nausea vomiting or diarrhea. Patient denies any urinary burning or frequency Review of Systems please refer to HPI otherwise unremarkable Past Medical History Past Medical History: No Reported History Additional Past Medical History / Comment(s): Obesity History of Any Multi-Drug Resistant Organisms: None Reported Past Surgical History: No Surgical Hx Reported Past Anesthesia/Blood Transfusion Reactions: No Reported Reaction Past Psychological History: No Psychological Hx Reported Smoking Status: Never smoker Past Alcohol Use History: None Reported Past Drug Use History: None Reported - Past Family History Mother Family Medical History: Diabetes Mellitus Medications and Allergies Home Medications Medication Instructions Recorded Confirmed Type Famotidine 20 mg PO BID 10/28/20 10/28/20 History Allergies Allergy/AdvReac Type Severity Reaction Status Date / Time No Known Allergies Allergy Verified 10/28/20 18:10 Physical Exam Vitals: Vital Signs Temp Pulse Pulse Resp BP BP Pulse Ox 10/29/20 07:00 98.5 F 89 16 137/92 97 10/29/20 01:47 87 10/29/20 00:59 98.5 F 78 18 120/75 98 10/28/20 20:45 98.4 F 87 18 117/79 96 10/28/20 20:01 98.9 F 86 18 149/79 99 10/28/20 20:00 87 18 10/28/20 18:46 84 18 134/91 98 10/28/20 15:43 98.2 F 88 20 149/87 98 Intake and Output 10/28/20 10/29/20 10/29/20 22:59 06:59 14:59 Intake Total 350 Balance 350 Intake: Oral 350 Other: Voiding Method Toilet # Voids 1 3 Weight 148.325 kg 148.32 kg Head normocephalic Neck supple Lungs clear to auscultation bilaterally no wheezing or crackles Heart regular rate and rhythm S1-S2, no rub or gallop Abdomen is soft nontender nondistended positive bowel sounds no hepatosplenomegaly Extremities no edema Neuro alert and orientated to 3 Results CBC & Chem 7: 10/28/20 18:20 10/28/20 18:20 Labs: Abnormal Lab Results - Last 24 Hours (Table) 10/28/20 10/28/20 10/28/20 Range/Units 18:20 18:20 18:20 Neutrophils # 8.2 H (1.3-7.7) k/uL APTT 21.8 L (22.0-30.0) sec Chloride 108 H (98-107) mmol/L Alkaline Phosphatase 128 H (38-126) U/L HDL Cholesterol (40.0-60.0) mg/dL 10/29/20 Range/Units 00:21 Neutrophils # (1.3-7.7) k/uL APTT (22.0-30.0) sec Chloride (98-107) mmol/L Alkaline Phosphatase (38-126) U/L HDL Cholesterol 36.0 L (40.0-60.0) mg/dL Thrombosis Risk Factor Assmnt - Choose All That Apply Any of the Below Risk Factors Present?: Yes Each Factor Represents 1 point: Obesity (BMI >25) Other Risk Factors: No Other congenital or acquired thrombophilia - If yes, enter type in comment: No Thrombosis Risk Factor Assessment Total Risk Factor Score: 1 Thrombosis Risk Factor Assessment Level: Low Risk Assessment and Plan Assessment: 1. Chest pain. Cardiology services have been consulted stress test ordered 2. Possible GERD. 3. Obesity Cardiology services have been consulted 2-D echo and stress echocardiogram ordered. Per cardiology services okay for discharge from cardiology perspective if echocardiogram shows no acute findings and stress test is normal Time with Patient: Greater than 30 (Greater than 60% of the total time spent in counseling and coordination of care)
--- NOTE | 2020-10-29 13:11 | P.STRESS ---
- Stress Test Note Stress Test Results/Findings: Exam Performed: stress echo exercise Exam Date: 10/29/20 Reason for Exam: CP Height: 5 ft 9 in Weight: 148.32 kg Protocol: STRESS ECHO Stage: 2 Duration of Exercise: 6:25 Resting Heart Rate: 81 Resting Blood Pressure: 123/62 Maximum Achieved Heart Rate: 170 Maximum Achieved Blood Pressure: 249/52 85% PMHR: 157 100% PMHR: 185 METS: 7.1 Technologist Comment: Stress Test Results/Findings: Patient underwent exercise stress echo with a Scot protocol treadmill stress test. Patient exercised into Stage 2 for a total of 6 minutes 25 seconds reaching a total of 7.1 METS. Patient's maximum heart rate was 165 which represented 92% age-predicted maximum heart rate. Stress EKG portion: At baseline patient's EKG showed normal sinus rhythm, normal axis, no significant ST or T-wave abnormalities.. At peak exercise, EKG showed no significant change from baseline. Stress echo portion: 2-D echocardiogram was performed in the parasternal long, personal short, apical 2 and apical four-chamber views at rest, peak exercise and in recovery. At baseline, echocardiogram showed left ventricular ejection fraction 60 % without wall motion abnormalities. With peak exercise, echocardiogram shows improvement in left ventricular ejection fraction, increase contractility, decrease in left ventricular dimension without wall motion abnormalities consistent with a normal response to exercise. Conclusions: 1. Normal EKG and echo response to exercise without evidence of inducible ischemia. 2. Fair exercise capacity. 3. Normal LV EF 60%
--- NOTE | 2020-10-29 13:27 | ECHOF ---
Referral Reason:LV function MEASUREMENTS -------- HEIGHT: 175.3 cm WEIGHT: 148.3 kg BP: 137/92 RVIDd: 3.9 cm (< 3.3) IVSd: 1.3 cm (0.6 - 1.1) LVIDd: 4.5 cm (3.9 - 5.3) LVPWd: 1.3 cm (0.6 - 1.1) IVSs: 1.9 cm LVIDs: 2.7 cm LVPWs: 1.9 cm LAESV Index (A-L): 16.01 ml/m Ao Diam: 2.9 cm (2.0 - 3.7) AV Cusp: 2.1 cm (1.5 - 2.6) LA Diam: 3.7 cm (2.7 - 3.8) MV EXCURSION: 22.775 mm (> 18.000) MV EF SLOPE: 95 mm/s (70 - 150) EPSS: 0.1 cm MV E Mo: 1.16 m/s MV DecT: 163 ms MV A Mo: 0.84 m/s MV E/A Ratio: 1.38 RAP: 5.00 mmHg RVSP: 39.00 mmHg FINDINGS -------- Sinus rhythm. This was a technically adequate study. The left ventricular size is normal. There is mild concentric left ventricular hypertrophy. Overa ll left ventricular systolic function is normal with, an EF between 55 - 60 %. The diastolic fillin g pattern is normal for the age of the patient. The right ventricle is normal in size. Left atrium is normal size by volume. The right atrial size is normal. Interatrial and interventricular septum intact. The aortic valve is trileaflet and appears structurally normal. There is no evidence of aortic regu rgitation. There is no evidence of aortic stenosis. No mitral regurgitation. Mild tricuspid regurgitation present. There is mild pulmonary hypertension. The right ventricular systolic pressure, as measured by Doppler, is 39.00mmHg. Trace/mild (physiologic) pulmonic regurgitation. The aortic root size is normal. The inferior vena cava is mildly dilated. There is no pericardial effusion. CONCLUSIONS -------- 1. The left ventricular size is normal. 2. Overall left ventricular systolic function is normal with, an EF between 55 - 60 %. 3. The diastolic filling pattern is normal for the age of the patient. 4. Mild tricuspid regurgitation present. 5. There is mild pulmonary hypertension. 6. The right ventricular systolic pressure, as measured by Doppler, is 39.00mmHg. 7. Trace/mild (physiologic) pulmonic regurgitation. 8. The inferior vena cava is mildly dilated. [employer]CR[employer] IRON LOADER: Shyla Suarez RDCS
--- NOTE | 2020-11-02 11:15 | P.DS ---
Providers Date of admission: 10/28/20 19:38 Expected date of discharge: 10/29/20 Attending physician: Padmini Lea Consults: 10/28/20 19:20 Consult Physician Routine Consulting Provider: [facility] Consult Reason/Comments: chest pressure Do you want consulting provider notified?: Yes Primary care physician: Ivy Muñoz Hospital Course: Discharge diagnosis 1. Chest pain. Cardiology services have been consulted stress test ordered 2. Possible GERD. 3. Obesity Cardiology services have been consulted 2-D echo and stress echocardiogram ordered. Per cardiology services okay for discharge from cardiology perspective if echocardiogram shows no acute findings and stress test is normal Hospital course This is a 35-year-old female patient of Dr. ferrell. Patient presented to the ER with complaints of chest pressure that has been occurring over the past 3 days intermittently patient describes pain as right-sided pressure and burning. Patient denies radiation to neck jaw or arm. Patient denies any associated shortness of breath. Patient reports that she has been following with her PCP who started her on Pepcid but she was unable to tolerate that medication. Patient denies any nicotine use or alcohol use. patient does have a past medical history of obesity. Chest x-ray completed showing no acute pulmonary process. Troponins negative 3. Cardiology consult has been placed 2-D echo and stress test has been ordered. At this time patient denies chest pain or shortness of breath. Patient denies nausea vomiting or diarrhea. Patient denies any urinary burning or frequency On 11/02/2020 stress test was completed showing normal EKG and echo response to exercise without evidence of inducible ischemia normal EF at 60%. Patient has been cleared by cardiology for discharge. Patient follow-up with PCP for further management and workup Patient Condition at Discharge: Good Plan - Discharge Summary Discharge Rx Participant: Yes New Discharge Prescriptions: No Action Famotidine 20 mg PO BID Discharge Medication List Famotidine 20 mg PO BID 10/28/20 [History] Follow up Appointment(s)/Referral(s): Ivy Muñoz MD [Primary Care Provider] - 1-2 days Patient Instructions/Handouts: Chest Pain (DC) Activity/Diet/Wound Care/Special Instructions: activity as tolerated heart healthy diet Discharge Disposition: HOME SELF-CARE
== END 2020-10-29 14:26 | disposition home or self-care (01) ==
LOC: EC 15:30 → 6NMEDSUR 19:38
PROVIDERS: ADMIT Internal Medicine; ATTEND Internal Medicine
DX: R07.89 Other chest pain (principal); E66.01 Morbid (severe) obesity due to excess calories; Z68.42 Body mass index [BMI] 45.0-49.9, adult; Z79.899 Other long term (current) drug therapy; Z87.19 Personal history of other diseases of the digestive system; Z82.49 Family history of ischemic heart disease and other diseases of the circulatory system; Z83.3 Family history of diabetes mellitus
CPT/HCPCS: 99285; 93005; 93306; 93351; 80061; 80053; 83735; 84484 ×2; 85025; 85610; 85730; 71046; G0378 ×2; 36415

== ENCOUNTER 2020-12-22 11:45 | Day surgery (SDC) | payer OTHER ==
[2020-12-17 11:22] VITALS: BMI 46.5
[~2020-12-22 11:45] MED LIST: LACTATED RINGERS 1,000 ML IV SCH; LIDOCAINE 1% (10MG/ML) FOR IV START INTRADERMA PRN
[2020-12-22 12:21] VITALS: TEMP 97.8
[2020-12-22] MEDS ORDERED: LACTATED RINGERS 1,000 ML IV ONE (12:21)
[2020-12-22] MEDS ORDERED: PROPOFOL 10 MG/ML 20 ML VIAL IV ONE (14:19)
--- NOTE | 2020-12-22 14:22 | P.GSHP ---
History of Present Illness H&P Date: 12/22/20 Chief Complaint: GERD 's is 35-year-old female who presents today for EGD. She's had issues with GERD. Past Medical History Past Medical History: No Reported History, GERD/Reflux Additional Past Medical History / Comment(s): Obesity History of Any Multi-Drug Resistant Organisms: None Reported Past Surgical History: No Surgical Hx Reported Past Anesthesia/Blood Transfusion Reactions: No Reported Reaction Smoking Status: Never smoker - Past Family History Mother Family Medical History: Diabetes Mellitus Medications and Allergies Home Medications Medication Instructions Recorded Confirmed Type Omeprazole 40 mg PO BID 12/17/20 12/17/20 History Allergies Allergy/AdvReac Type Severity Reaction Status Date / Time No Known Allergies Allergy Verified 12/17/20 11:15 Surgical - Exam Vital Signs Temp Pulse Resp BP Pulse Ox 97.8 F 88 18 155/96 97 12/22/20 12:20 12/22/20 12:20 12/22/20 12:20 12/22/20 12:20 12/22/20 12:20 - General well developed, well nourished, no distress - Eyes PERRL - ENT normal pinna - Neck no masses - Respiratory normal expansion - Cardiovascular Rhythm: regular - Abdomen Abdomen: soft, non tender Assessment and Plan Assessment: GERD. We'll perform EGD.
--- NOTE | 2020-12-22 14:34 | P.OP ---
Date of Procedure: 12/22/20 Preoperative Diagnosis: GERD Postoperative Diagnosis: Antral gastritis Hiatal hernia Mild esophagitis Procedure(s) Performed: EGD Anesthesia: MAC Surgeon: Michael Soto Pathology: other (Antrum, esophagus) Condition: stable Disposition: PACU Description of Procedure: The patient's placed on the endoscopy table in the lateral position. She received IV sedation. The gastroscope placed oropharynx passed in the esophagus and stomach. Scope was placed through the pylorus. First and second portion of the duodenum appeared normal. The scope was then brought back the antrum was mildly inflamed. A biopsies performed. Scope was then retroflexed and the remainder of the stomach appeared normal. The GE junction was at 40 cm. There was a small sliding hiatal hernia. The distal esophagus appeared minimally inflamed. Biopsies performed. The proximal esophagus appeared normal. Scope was withdrawn for patient.
[2020-12-22 14:35] VITALS: RESP 16
[2020-12-22 14:48] VITALS: BP 144/96; PULSE 87
== END 2020-12-22 15:04 | disposition home or self-care (01) ==
LOC: ORWHC2ENDO 11:45
PROVIDERS: ATTEND Surgery
DX: K21.00 Gastro-esophageal reflux disease with esophagitis, without bleeding (principal); K44.9 Diaphragmatic hernia without obstruction or gangrene; E66.9 Obesity, unspecified; Z83.3 Family history of diabetes mellitus
CPT/HCPCS: 43239; 81025; J2704; 88305

== ENCOUNTER → 2021-01-02 | Outpatient (CLI) | payer OTHER ==
[2021-01-02 11:45] LABS: Basophils % (A) 0 %; Eosinophils # (A) 0.1 k/uL (0-0.7); Eosinophils % (A) 1 %; HCT 40.5 % (34.0-46.0); HGB 13.3 gm/dL (11.4-16.0); Lymphocytes # (A) 1.6 k/uL (1.0-4.8); Lymphocytes % (A) 21 %; MCH 29.4 pg (25.0-35.0); MCHC 32.9 g/dL (31.0-37.0); MCV 89.4 fL (80.0-100.0); Mean Platelet Volume 10.1; Monocytes # (A) 0.3 k/uL (0-1.0); Monocytes % (A) 4 %; Neutrophils # (A) 5.5 k/uL (1.3-7.7); Neutrophils % (A) 73 %; Platelet Count 242 k/uL (150-450); RBC 4.53 m/uL (3.80-5.40); WBC 7.6 k/uL (3.8-10.6)
== END | disposition home or self-care (01) ==
LOC: LABPAT 10:29
PROVIDERS: ATTEND Surgery
DX: Z01.812 Encounter for preprocedural laboratory examination (principal); K21.00 Gastro-esophageal reflux disease with esophagitis, without bleeding
CPT/HCPCS: 85025; 86850; 86900; 86901; 93005

== ENCOUNTER 2021-01-09 07:49 | Observation (INO) | payer OTHER ==
[~2021-01-09 07:49] MED LIST changes: +ACETAMINOPHEN TAB 500 MG TAB PO PRN; +HEPARIN SODIUM,PORCINE/PF 5,000 UNIT/0.5 ML SYRINGE SQ PRN; -LACTATED RINGERS 1,000 ML IV SCH; -LIDOCAINE 1% (10MG/ML) FOR IV START INTRADERMA PRN; +ceFAZolin 3 GM in SODIUM CHLORIDE 0.9% 100 ML IVPB PRN
[2021-01-09] MEDS ORDERED: LACTATED RINGERS 1,000 ML IV ONE ×2 (08:40→10:15)
[2021-01-09] MEDS ORDERED: ONDANSETRON 4 MG/2 ML VIAL ONE (08:49)
[2021-01-09] MEDS ORDERED: DEXAMETHASONE SOD PHOSPHATE 4 MG/ML 1 ML VIAL IVP ONE (08:51)
--- NOTE | 2021-01-09 08:58 | P.GSHP ---
History of Present Illness H&P Date: 01/09/21 Chief Complaint: GERD This a 35-year-old female who presents today for laparoscopic Albertina fundal plication. Patient's had issues with GERD. Past Medical History Past Medical History: GERD/Reflux Additional Past Medical History / Comment(s): COVID 06/2020, hiatal hernia, History of Any Multi-Drug Resistant Organisms: None Reported Past Surgical History: No Surgical Hx Reported Additional Past Surgical History / Comment(s): EGD Past Anesthesia/Blood Transfusion Reactions: No Reported Reaction Smoking Status: Never smoker - Past Family History Mother Family Medical History: No Reported History Medications and Allergies Home Medications Medication Instructions Recorded Confirmed Type Omeprazole 40 mg PO BID 12/17/20 01/09/21 History Allergies Allergy/AdvReac Type Severity Reaction Status Date / Time No Known Allergies Allergy Verified 01/09/21 08:10 Surgical - Exam Vital Signs Temp Pulse Resp BP Pulse Ox 98.2 F 86 16 145/97 98 01/09/21 08:10 01/09/21 08:10 01/09/21 08:10 01/09/21 08:10 01/09/21 08:10 - General well developed, well nourished, no distress - Eyes PERRL - ENT normal pinna - Neck no masses - Respiratory normal expansion - Cardiovascular Rhythm: regular - Abdomen Abdomen: soft, non tender Assessment and Plan Assessment: GERD. We'll perform laparoscopic Albertina plication
[2021-01-09] MEDS ORDERED: ROCURONIUM 10 MG/ML (5 ML VIAL) IV ONE (09:19)
[2021-01-09] MEDS ORDERED: MIDAZOLAM 2 MG/2 ML VIAL ONE (09:19)
[2021-01-09] MEDS ORDERED: LIDOCAINE 1% INJ 10MG/ML (20 ML MDV) ONE (09:19)
[2021-01-09] MEDS ORDERED: PROPOFOL 10 MG/ML 20 ML VIAL IV ONE (09:19)
[2021-01-09] MEDS ORDERED: SUCCINYLCHOLINE CHLORIDE VIAL 200 MG/10 ML VIAL IV ONE (09:19)
[2021-01-09] MEDS ORDERED: fentaNYL (PF) 50 MCG/ML 2 ML AMP ONE (09:19)
[2021-01-09] MEDS ORDERED: BUPIVACAINE (PF) 0.5% 30 ML VIAL SQ ONE ×2 (09:26→09:52)
[2021-01-09] MEDS ORDERED: KETOROLAC 15 MG/ML 1 ML VIAL ONE (10:26)
[2021-01-09] MEDS ORDERED: KETOROLAC 15 MG/ML 1 ML VIAL IVP ONE (10:28)
[2021-01-09] MEDS ORDERED: HYDROmorphone 1 MG/ML 1 ML SYRINGE IVP PRN (10:31)
--- NOTE | 2021-01-09 10:31 | P.OP ---
Date of Procedure: 01/09/21 Preoperative Diagnosis: GERD Postoperative Diagnosis: GERD Procedure(s) Performed: Laparoscopic Albertina fundal plication Anesthesia: JOYCE Surgeon: Michael Soto Estimated Blood Loss (ml): 5 Pathology: none sent Condition: stable Disposition: PACU Description of Procedure: HarThe patient was placed on the operating table in the supine position. The patient received general anesthesia. And was placed in dorsal lithotomy position. The patient was prepped and draped in the usual sterile fashion. The skin incision sites were anesthetized with 1% local Xylocaine. The skin was incised in the left periumbilical area and then using a blade less 5 mm trocar u nder direct visualization panel cavity was entered. After adequate insufflation the laparoscope was then placed into the peritoneal cavity. Next a 5 mm trochars placed in the right epigastric position. Another 5 millimeter trocar the right lateral position. Another 5 millimeter trocar in the left lateral position a 5 mm trocar is placed in the left epigastric position. And then the initial 5 mm trocar was exchanged for a 10 mm trocar. The left lateral lobe liver was retracted. The hernia was seen. The crural defect was then dissected using the Harmonic scissors device. A 360 crural dissection was performed the esophagus stomach was reduced back into the peritoneal Cavity. The crural defect was then closed using 2-0 Ethibond suture. Next the fundus of the stomach was mobilized using the Star scissors device. and then a 58-Slovenian bougie dilator was placed oropharynx passed into the esophagus and stomach the fundal plication wrap was then performed by grasping the fundus posteriorly and bringing it around the esophagus and stomach fundoplication was then performed using 2-0 Ethibond suture. Care was taken that the fundal location rested over top of the intra-abdominal esophagus. There was no injury seen to the stomach or esophagus. The dilator was then withdrawn. The abdomen was irrigated there is no bleeding seen. The trochars were then withdrawn and then skin incision sites were closed using 3-0 Monocryl suture Steri-Strips are applied. Patient thought procedure well and sent to recovery room in stable condition.
[2021-01-09] MEDS: D5-0.45% NACL WITH KCL 20MEQ/L 1,000 ML IV SCH ×2 (11:51→18:53)
[2021-01-09 14:22] VITALS: RESP 16
--- NOTE | 2021-01-09 14:24 | FL ---
Single contrast esophagram EXAMINATION TYPE: FL UGI limited DATE OF EXAM: 01/09/2021 2:16 PM COMPARISON: NONE CLINICAL HISTORY: Status post Kirk fundoplication The patient ingested contrast without difficulty or delay. Noted are changes of Kirk fundoplicatio n. There is no evidence for leak or obstruction. Small amount of residual contrast within the distal esophagus. IMPRESSION: Post-surgical change of Kirk fundoplication without evidence for leak or obstruction.
[2021-01-09 15:08] VITALS: BMI 48.0
[2021-01-09] MEDS: KETOROLAC 15 MG/ML 1 ML VIAL IVP PRN (16:30)
[2021-01-09] MEDS: PANTOPRAZOLE 40 MG TABLET PO SCH (20:12)
[2021-01-10] MEDS: D5-0.45% NACL WITH KCL 20MEQ/L 1,000 ML IV SCH ×2 (01:50→08:35)
[2021-01-10] MEDS: KETOROLAC 15 MG/ML 1 ML VIAL IVP PRN ×2 (02:27→12:42)
[2021-01-10 08:34] VITALS: BP 133/85; PULSE 72; TEMP 97.8
[2021-01-10] MEDS: PANTOPRAZOLE 40 MG TABLET PO SCH (08:34)
[2021-01-10] MEDS ORDERED: ENOXAPARIN 40 MG/0.4 ML SYRINGE SQ SCH (09:00)
--- NOTE | 2021-01-10 11:23 | P.DS ---
Providers Date of admission: 01/10/21 09:03 Expected date of discharge: 01/10/21 Attending physician: Michael Soto Consults: 01/09/21 14:04 Consult Physician Routine Consulting Provider: Padmini Lea Consult Reason/Comments: medical management Do you want consulting provider notified?: Yes Primary care physician: Ivy Muñoz [facility] Course: Is a 35-year-old female who underwent laparoscopic Albertina location. Patient postoperatively unremarkable. Please see hospital chart for details. Procedures: Laparoscopic Albertina fundal plication Patient Condition at Discharge: Good Plan - Discharge Summary Discharge Rx Participant: No New Discharge Prescriptions: No Action Omeprazole 40 mg PO BID Discharge Medication List Omeprazole 40 mg PO BID 12/17/20 [History] Discharge Disposition: HOME SELF-CARE
--- NOTE | 2021-01-10 15:35 | P.PN ---
Progress Note - Text Progress Note Date: 01/10/21 Patient was discharged home a few hours after consult was placed Patient was not seen by me during this admission There is no labs in the chart Cancer consult no billing
== END 2021-01-10 13:30 | disposition home or self-care (01) ==
LOC: OR 07:49 → 6PED 10:24 → OR 01-10 09:03
PROVIDERS: ADMIT Surgery; ATTEND Surgery
DX: K21.9 Gastro-esophageal reflux disease without esophagitis (principal); K44.9 Diaphragmatic hernia without obstruction or gangrene; Z20.822 Contact with and (suspected) exposure to COVID-19; Z79.899 Other long term (current) drug therapy; E66.9 Obesity, unspecified; Z68.42 Body mass index [BMI] 45.0-49.9, adult; Z86.16 Personal history of COVID-19
CPT/HCPCS: 43280; 81025; 87635; G0378; J2250; J0330; J1100; J0690; J2405; J2001; J1650; J3010; J1885 ×2; J2704; Q9967; J1644

== ENCOUNTER → 2023-08-23 | Outpatient (CLI) | payer OTHER ==
--- NOTE | 2023-08-23 11:30 | XR ---
EXAMINATION TYPE: XR pelvis AP view DATE OF EXAM: 08/23/2023 10:43 AM CLINICAL INDICATION:Female, 38 years old with history of M54.5 lumbago; [facility] COMPARISON: None TECHNIQUE: The pelvis was examined in a single projection. FINDINGS: There is no evidence of fracture or dislocation. There is no soft tissue abnormality. No a bnormal calcifications are present. The spine appears intact. The hips appear intact. No significant degeneration. Mild degeneration of the spine with osteophyte formation and facet joint arthropathy. IMPRESSION: 1. No acute osseous pathology. 2. Mild degeneration changes of the spine.
== END | disposition home or self-care (01) ==
LOC: RADXRMAIN 10:24
PROVIDERS: ATTEND Chiropractor
DX: M54.50 Low back pain, unspecified (principal)
CPT/HCPCS: 72170